=== PATIENT | female | born 1975 | race Caucasian/White ===

== ENCOUNTER 2022-01-12 17:01 | Observation (INO) ==
[2022-01-12] MEDS ORDERED: Dexamethasone IV 4 MG/ML VIAL 1 ml VIAL IV SLOW PU ONE (17:28)
[2022-01-12 18:17] LABS: Activated Partial Thrombo Time 33.1 seconds (26.0-38.0); INR 1.26 (0.86-1.15)
[2022-01-12] MEDS ORDERED: DEXAMETHASONE IVPB ONE (18:51)
[2022-01-12] MEDS ORDERED: NS 0.9% IVPB ONE (18:51)
[2022-01-12] MEDS ORDERED: Immune Globulin IV Order (CPOE ENTRY PROTOCOL) IV SCH ×2 (19:00→20:00)
[2022-01-12] MEDS ORDERED: IMMUNE GLOB IV SCH (20:00)
[2022-01-12] MEDS ORDERED: PRIVIGEN IV SCH (20:00)
[2022-01-12 21:54] LABS: Mean Platelet Volume 11.7 fL (7.4-10.4); Platelet Count 3 10^3/uL (150-450)
[2022-01-13 06:40] LABS: ABS Lymphocytes 0.7 10^3/ul (1.0-4.8); ABS Monocytes 0.1 10^3/ul (0-0.8); Eosinophil % 0.1 %; Hematocrit 34 % (35-47); Hemoglobin 12.3 g/dL (12.0-16.0); Lymphocyte % 6.9 %; Mean Corpuscular HGB Conc 36 g/dL (31-36); Mean Corpuscular Hemoglobin 29 pg (27-31); Mean Corpuscular Volume 82 fL (80-97); Mean Platelet Volume 11.5 fL (7.4-10.4); Platelet Count 5 10^3/uL (150-450); Red Blood Count 4.22 10^6 /uL (3.70-4.87); Red Cell Distribution Width 13 % (10-15); White Blood Count 9.8 10^3/uL (3.5-10.8)
[2022-01-13 06:56] LABS: Albumin 3.7 g/dL (3.2-5.2); Albumin/Globulin Ratio 0.8 (1-3); Calcium 8.6 mg/dL (8.6-10.3); Globulin 4.7 g/dL (2-4); Total Bilirubin 0.5 mg/dL (0.2-1.0); Total Protein 8.4 g/dL (6.4-8.9); eGFR CKD-EPI 98.4 (>60)
[2022-01-13] MEDS ORDERED: Dexamethasone IV 40 MG in NS 0.9% 50 ML 50 ML IVPB SCH (08:00)
[2022-01-13] MEDS ORDERED: Dexamethasone IV 4 MG/ML 5 ML VIAL (20 MG) ONE (08:33)
[2022-01-13] MEDS: Dexamethasone IV 40 MG in NS 0.9% 50 ML 50 ML IVPB SCH (08:51)
[2022-01-13 15:59] LABS: ABS Lymphocytes 0.8 10^3/ul (1.0-4.8); ABS Monocytes 0.3 10^3/ul (0-0.8); ABS Neutrophils 12.6 10^3/ul (1.5-7.7); Hematocrit 36 % (35-47); Hemoglobin 12.5 g/dL (12.0-16.0); Lymphocyte % 5.8 %; Mean Corpuscular HGB Conc 35 g/dL (31-36); Mean Corpuscular Hemoglobin 28 pg (27-31); Mean Corpuscular Volume 82 fL (80-97); Mean Platelet Volume 11.2 fL (7.4-10.4); Platelet Count 7 10^3/uL (150-450); Red Blood Count 4.42 10^6 /uL (3.70-4.87); Red Cell Distribution Width 13 % (10-15); White Blood Count 13.6 10^3/uL (3.5-10.8)
[2022-01-13] MEDS ORDERED: PRIVIGEN IV SCH (16:00)
[2022-01-13] MEDS ORDERED: IMMUNE GLOB IV SCH (16:00)
[2022-01-14 07:02] LABS: ABS Lymphocytes 1.3 10^3/ul (1.0-4.8); ABS Monocytes 0.7 10^3/ul (0-0.8); Hematocrit 32 % (35-47); Hemoglobin 11.4 g/dL (12.0-16.0); Lymphocyte % 10.9 %; Mean Corpuscular HGB Conc 35 g/dL (31-36); Mean Corpuscular Hemoglobin 29 pg (27-31); Mean Corpuscular Volume 82 fL (80-97); Mean Platelet Volume 10.8 fL (7.4-10.4); Platelet Count 18 10^3/uL (150-450); Red Blood Count 3.95 10^6 /uL (3.70-4.87); Red Cell Distribution Width 13 % (10-15)
[2022-01-14 07:06] LABS: INR 1.24 (0.86-1.15)
[2022-01-14 07:18] LABS: Albumin 3.3 g/dL (3.2-5.2); Albumin/Globulin Ratio 0.6 (1-3); Calcium 8.4 mg/dL (8.6-10.3); Globulin 5.6 g/dL (2-4); Potassium 3.8 mmol/L (3.5-5.0); Total Bilirubin 0.3 mg/dL (0.2-1.0); Total Protein 8.9 g/dL (6.4-8.9); eGFR CKD-EPI 93.9 (>60)
[2022-01-14 07:31] LABS: TSH Ultra Thyroid Stim Horm 0.6 mcIU/mL (0.34-5.60)
[2022-01-14] MEDS: Dexamethasone IV 40 MG in NS 0.9% 50 ML 50 ML IVPB SCH (09:23)
[2022-01-14 12:18] LABS: Hepatitis C Antibody Negative (Negative)
[2022-01-14 13:02] VITALS: BP 121/64
== END 2022-01-14 13:20 | disposition home or self-care (01) ==
LOC: ED 17:01 → EDHOLD 17:01 → SUATTDRO 19:24 → MEDTELE 20:24
PROVIDERS: ADMIT Hospitalist; ATTEND Internal Medicine